=== PATIENT | female | born 1980 | race African-American/Black ===

== ENCOUNTER 2019-04-11 01:20 | Emergency (ER) | payer BC ==
[2019-04-11] MEDS ORDERED: Tetracaine HCl/PF 0.5% 4 ML Bottle EYEBOTH ONE (01:47)
[2019-04-11] MEDS ORDERED: Cetirizine 10 MG Tab PO ONE (01:47)
--- NOTE | 2019-04-11 01:56 | EDM.PDOC ---
ED HPI GENERAL MEDICAL PROBLEM - General Chief Complaint: ENT Problem Stated Complaint: CHEMICAL SPLASHED INTO EYES Time Seen by Provider: 04/11/19 01:50 Source of Information: Reports: Patient History Limitations: Reports: No Limitations - History of Present Illness INITIAL COMMENTS - FREE TEXT/NARRATIVE: Patient is a 38-year-old female with a past medical history of ulcerative colitis presenting with a chief complaint of grittiness sensation to both of her eyes. Patient states the symptoms developed after she dropped bleach. Patient states that she was holding a bottle of bleach when she felt like she had to use the bathroom so she dropped a bottle of bleach onto the floor. She quickly ran to the bathroom. Patient is not remember any chemical splashing into her eyes but noticed that as time went on throughout the evening her eyes became more irritated and more uncomfortable. She states her symptoms started in her left eye and then began in her right eye later. Patient reports associated nasal congestion states that she does have problems with allergies as well. She rinsed her eyes out and used clear eyes but did not have any improvement of her symptoms. Patient states she has some slight blurring of her right eye but otherwise just feels like her eyes are gritty. She has noted some associated redness of the both eyes. Pmhx: Per HPI Pshx: None Family Hx: noncontributory Smoking history? no Etoh use? none Drug use? none Comprehensive of review of systems performed and otherwise negative I have reviewed the triage vital signs Const: Well nourished, well developed, appears stated age Eyes: Bilateral conjunctival injection with mild swelling of both eyelids. On eyelid eversion no foreign body visualized. No discharge noted. Eyes are watery. Fluorescein exam is unremarkable. Extra ocular movements are intact. Pupils are equal and reactive to light. pH of both eyes is 7. HENT: NCAT, Neck supple without meningismus CV: RRR, Warm, well-perfused extremities RESP: CTAB, Unlabored respiratory effort GI: soft, non-tender, non-distended, no masses MSK: No gross deformities appreciated Skin: Warm, dry. No rashes Neuro: Alert, fur finisher II-XII grossly intact. Sensation and motor function of extremities grossly intact. Psych: Appropriate mood and affect Assessment and plan: Patient is 38-year-old female with eye itchiness and grittiness. Patient has no evidence of foreign body to the eyes. Patient's eyes and exam are more consistent with allergic conjunctivitis. I do believe that these symptoms and history are compatible with any significant bleach exposure to the eye. Patient will be given allergy medication and instructions to follow-up with ophthalmology clinic tomorrow. Patient given return precautions. All questions were addressed and answered. Patient agrees with plan. bilateral eyes Pain Score (Numeric/FACES): 5 - Related Data Allergies Allergy/AdvReac Type Severity Reaction Status Date / Time Influenza Virus Vaccines Allergy Itching Verified 04/11/19 01:35 morphine Allergy Other Verified 05/09/15 14:59 Home Meds: Home Meds Cholestyramine/Sucrose [Cholestyramine Packet] 4 gm PO DAILY 05/09/15 [History] Diphenoxylate HCl/Atropine [Diphenoxylate-Atrop 2.5-0.025] 1 each PO DAILY 05/08 [History] Esomeprazole Magnesium [Nexium 24Hr] 22.3 mg PO DAILY 05/09/15 [History] Ferrous Sulfate [Iron] 325 mg PO DAILY 05/09/15 [History] Megestrol Acetate 400 mg PO DAILY 05/09/15 [History] Ondansetron [Zofran ODT] 4 mg PO Q6H 05/09/15 [History] Vitamin B Complex [B Complex] 1 each PO DAILY 05/09/15 [History] metroNIDAZOLE [Metronidazole] 500 mg PO TID 05/09/15 [History] Past Medical History Gastrointestinal History: Reports: Inflammatory Bowel Disease, Other (See Below) Other Gastrointestinal History: ulcerative colitis Psychiatric History: Reports: Depression - Past Surgical History GI Surgical History: Reports: None Social & Family History - Family History Family Medical History: Noncontributory - Tobacco Use Smoking Status *Q: Never Smoker Second Hand Smoke Exposure: No - Caffeine Use Caffeine Use: Reports: None - Recreational Drug Use Recreational Drug Use: No ED ROS GENERAL - Review of Systems Review Of Systems: See Below ED EXAM GENERAL W FULL EYE - Physical Exam Exam: See Below Course - Vital Signs Last Recorded V/S: Last Vital Signs Temp 36.3 C 04/11/19 01:24 Pulse 92 04/11/19 01:24 Resp 17 04/11/19 01:24 BP 124/76 04/11/19 01:24 Pulse Ox 97 04/11/19 01:24 - Orders/Labs/Meds Meds: Medications Discontinued Medications Generic Name Dose Route Start Last Admin Trade Name Oswaldo PRN Reason Stop Dose Admin Cetirizine HCl 10 mg 04/11/19 01:47 04/11/19 01:57 Zyrtec PO 04/11/19 01:48 10 mg ONETIME ONE Administration Tetracaine HCl 1 ml 04/11/19 01:47 04/11/19 01:56 Tetracaine 0.5% Steri-Unit Felicity EYEBOTH 04/11/19 01:48 2 drop ASDIRECTED ONE Administration Departure - Departure Time of Disposition: 02:10 Disposition: Home, Self-Care 01 Clinical Impression: Allergic conjunctivitis - Discharge Information Referrals: PCP,None [Primary Care Provider] - Forms: ED Department Discharge Additional Instructions: The following information is given to patients seen in the emergency department who are being discharged to home. This information is to outline your options for follow-up care. We provide all patients seen in our emergency department with a follow-up referral. The need for follow-up, as well as the timing and circumstances, are variable depending upon the specifics of your emergency department visit. If you don't have a primary care physician on staff, we will provide you with a referral. We always advise you to contact your personal physician following an emergency department visit to inform them of the circumstance of the visit and for follow-up with them and/or the need for any referrals to a consulting specialist. The emergency department will also refer you to a specialist when appropriate. This referral assures that you have the opportunity for follow-up care with a specialist. All of these measure are taken in an effort to provide you with optimal care, which includes your follow-up. Under all circumstances we always encourage you to contact your private physician who remains a resource for coordinating your care. When calling for follow-up care, please make the office aware that this follow-up is from your recent emergency room visit. If for any reason you are refused follow-up, please contact the [facility] Emergency Department at and asked to speak to the emergency department charge nurse. Sepsis Event Note - Evaluation Sepsis Screening Result: No Definite Risk - Focused Exam Vital Signs: Vital Signs Temp Pulse Resp BP Pulse Ox 04/11/19 01:24 36.3 C 92 17 124/76 97 Date Exam was Performed: 04/11/19 Time Exam was Performed: 02:08
[2019-04-11 02:17] VITALS: BP 126/80; PULSE 85
== END 2019-04-11 02:15 | disposition home or self-care (01) ==
LOC: MW.ED 01:20
DX: H10.13 Acute atopic conjunctivitis, bilateral (principal); Z88.5 Allergy status to narcotic agent; Z88.8 Allergy status to other drugs, medicaments and biological substances; Z79.899 Other long term (current) drug therapy
CPT/HCPCS: 99283; A9270

== ENCOUNTER 2019-04-29 17:40 | Emergency (ER) | payer BC, MEDICAID ==
[2019-04-29] MEDS ORDERED: Sodium Chloride 0.9% 1,000 ML IV ONE (19:07)
[2019-04-29] MEDS ORDERED: Ondansetron 4 MG/2 ML SDV IVPUSH ONE (19:09)
--- NOTE | 2019-04-29 19:09 | EDM.PDOC ---
ED HPI GENERAL MEDICAL PROBLEM - General Chief Complaint: Fever Stated Complaint: EMS ARRIVAL Time Seen by Provider: 04/29/19 18:53 Source of Information: Reports: Patient History Limitations: Reports: No Limitations - History of Present Illness INITIAL COMMENTS - FREE TEXT/NARRATIVE: HISTORY AND PHYSICAL: History of present illness: She is a 38-year-old female who presents to the ED today via EMS for concern of fever, cough, headache, generalized body aches since this morning. Patient states she did take 3 doses of Tylenol and told today and did take 1 dose just before coming to the ED. Patient states she checked her temperature at home and it was 100.9 orally. Patient states her headache is her main complaint and that this is not her typical type of headache and is unusual for her. Patient states she does have a history of ulcerative colitis and is on immune suppressing agents. Patient denies any other health history. Patient denies chest pain, shortness of breath. Denies neck stiff ness, change in vision, syncope, or near syncope. Denies nausea, vomiting, abdominal pain, diarrhea, constipation, or dysuria. Has not noted any blood in urine or stool. Patient has been eating and drinking appropriately. Review of systems: As per history of present illness and below otherwise all systems reviewed and negative. Past medical history: As per history of present illness and as reviewed below otherwise noncontributory. Surgical history: As per history of present illness and as reviewed below otherwise noncontributory. Social history: See social history for further information Family history: As per history of present illness and as reviewed below otherwise noncontributory. Physical exam: General: Patient is alert, oriented, and in no acute distress. Patient laying on exam table and tired appearing. HEENT: Atraumatic, normocephalic, pupils equal and reactive bilaterally, negative for conjunctival pallor or scleral icterus, mucous membranes moist, TMs normal bilaterally, throat clear, neck supple, nontender, trachea midline. No drooling or trismus noted. No meningeal signs. No hot potato voice noted. Lungs: Clear to auscultation, breath sounds equal bilaterally, chest nontender. Heart: S1S2, regular rate and rhythm without overt murmur Abdomen: Soft, nondistended, nontender. Negative for masses or hepatosplenomegaly. Negative for costovertebral tenderness. Pelvis: Stable nontender. Genitourinary: Deferred. Rectal: Deferred. Skin: Intact, warm, dry. No lesions or rashes noted. Extremities: Atraumatic, negative for cords or calf pain. Neurovascular unremarkable.Negative Brudzinski/Kernig sign. Neuro: Awake, alert, oriented. Cranial nerves II through XII unremarkable. Cerebellum unremarkable. Motor and sensory unremarkable throughout. Exam nonfocal. Notes: Patient expresses improvement of symptoms today in the ED. Discussed importance for follow-up with primary care provider. Voices understanding and is agreeable to plan of care. Denies any further questions or concerns at this time. Diagnostics: Influenza, Strep, CBC, CMP, UA, EKG, CXR, Hcg, Head CT Therapeutics: NS, Zofran, Toradol, Reglan, Benadryl Prescription: None Impression: Flu like symptoms Headache, improved Plan: 1. You can alternate ibuprofen and Tylenol as directed for pain and discomfort. 2. Follow-up with your primary care provider as discussed. Return to the ED as needed and as discussed. Definitive disposition and diagnosis as appropriate pending reevaluation and review of above. SÁNCHEZ Pain Score (Numeric/FACES): 9 - Related Data Allergies Allergy/AdvReac Type Severity Reaction Status Date / Time Influenza Virus Vaccines Allergy Itching Verified 04/29/19 18:57 morphine Allergy Other Verified 04/29/19 18:57 Home Meds: Home Meds Cholestyramine/Sucrose [Cholestyramine Packet] 4 gm PO DAILY 05/09/15 [History] Diphenoxylate HCl/Atropine [Diphenoxylate-Atrop 2.5-0.025] 1 each PO DAILY 05/08 [History] Esomeprazole Magnesium [Nexium 24Hr] 22.3 mg PO DAILY 05/09/15 [History] Ferrous Sulfate [Iron] 325 mg PO DAILY 05/09/15 [History] Megestrol Acetate 400 mg PO DAILY 05/09/15 [History] Ondansetron [Zofran ODT] 4 mg PO Q6H 05/09/15 [History] Vitamin B Complex [B Complex] 1 each PO DAILY 05/09/15 [History] metroNIDAZOLE [Metronidazole] 500 mg PO TID 05/09/15 [History] Mesalamine [Apriso] 0.375 gm PO TID 04/29/19 [History] Past Medical History Gastrointestinal History: Reports: Inflammatory Bowel Disease, Other (See Below) Other Gastrointestinal History: ulcerative colitis Psychiatric History: Reports: Depression - Past Surgical History GI Surgical History: Reports: None Social & Family History - Family History Family Medical History: Noncontributory - Tobacco Use Smoking Status *Q: Never Smoker - Caffeine Use Caffeine Use: Reports: None - Recreational Drug Use Recreational Drug Use: No ED ROS GENERAL - Review of Systems Review Of Systems: Comprehensive ROS is negative, except as noted in HPI. ED EXAM, GENERAL - Physical Exam Exam: See Below (see dictation) Course - Vital Signs Last Recorded V/S: Last Vital Signs Temp 99.1 F 04/29/19 20:41 Pulse 91 04/29/19 20:41 Resp 12 04/29/19 20:41 BP 123/76 04/29/19 20:41 Pulse Ox 97 04/29/19 20:41 - Orders/Labs/Meds Orders: Active Orders 24 hr Category Date Time Status EKG Documentation Completion [RC] STAT Care 04/29/19 19:05 Active CULTURE STREP A CONFIRMATION [RM] Stat Lab 04/29/19 19:05 Results STREP SCRN A RAPID W CULT CONF [RM] Stat Lab 04/29/19 19:05 Results Isolation [COMM] Routine Oth 04/29/19 18:59 Active Labs: Laboratory Tests 04/29/19 04/29/19 04/29/19 Range/Units 19:12 19:12 19:12 WBC 7.41 (4.0-11.0) K/uL RBC 4.57 (4.30-5.90) M/uL Hgb 12.9 (12.0-16.0) g/dL Hct 39.9 (36.0-46.0) % MCV 87.3 (80.0-98.0) fL MCH 28.2 (27.0-32.0) pg MCHC 32.3 (31.0-37.0) g/dL RDW Std Deviation 45.3 (28.0-62.0) fl RDW Coeff of Harvey 14 (11.0-15.0) % Plt Count 217 (150-400) K/uL MPV 11.70 (7.40-12.00) fL Neut % (Auto) 80.2 H (48.0-80.0) % Lymph % (Auto) 7.0 L (16.0-40.0) % [place] % (Auto) 12.0 (0.0-15.0) % Eos % (Auto) 0.7 (0.0-7.0) % Baso % (Auto) 0.1 (0.0-1.5) % Neut # (Auto) 5.9 H (1.4-5.7) K/uL Lymph # (Auto) 0.5 L (0.6-2.4) K/uL [place] # (Auto) 0.9 H (0.0-0.8) K/uL Eos # (Auto) 0.1 (0.0-0.7) K/uL Baso # (Auto) 0.0 (0.0-0.1) K/uL Nucleated RBC % 0.0 /100WBC Nucleated RBCs # 0 K/uL Sodium 141 (136-145) mmol/L Potassium 3.7 (3.5-5.1) mmol/L Chloride 104 (98-107) mmol/L Carbon Dioxide 26.3 (21.0-32.0) mmol/L BUN 11 (7.0-18.0) mg/dL Creatinine 1.1 H (0.6-1.0) mg/dL Est Cr Clr Drug Dosing 68.09 mL/min Estimated GFR (MDRD) > 60.0 ml/min Glucose 97 (74-106) mg/dL Calcium 9.5 (8.5-10.1) mg/dL Total Bilirubin 0.6 (0.2-1.0) mg/dL AST 27 (15-37) IU/L ALT 29 (14-63) IU/L Alkaline Phosphatase 86 (46-116) U/L Total Protein 7.7 (6.4-8.2) g/dL Albumin 3.8 (3.4-5.0) g/dL Globulin 3.9 (2.6-4.0) g/dL Albumin/Globulin Ratio 1.0 (0.9-1.6) HCG, Qual NEGATIVE (NEG) Meds: Medications Discontinued Medications Generic Name Dose Route Start Last Admin Trade Name Freq PRN Reason Stop Dose Admin Diphenhydramine HCl 50 mg 04/29/19 20:46 04/29/19 20:52 Benadryl IVPUSH 04/29/19 20:47 50 mg ONETIME ONE Administration Sodium Chloride 1,000 mls @ 999 mls/hr 04/29/19 19:07 04/29/19 19:16 Normal Saline IV 04/29/19 20:07 999 mls/hr STAT ONE Administration Ketorolac Tromethamine 30 mg 04/29/19 19:58 04/29/19 20:06 Toradol IVPUSH 04/29/19 19:59 30 mg ONETIME ONE Administration Metoclopramide HCl 10 mg 04/29/19 20:46 04/29/19 20:52 Reglan IV 04/29/19 20:47 10 mg ONETIME ONE Administration Ondansetron HCl 4 mg 04/29/19 19:09 04/29/19 19:18 Zofran IVPUSH 04/29/19 19:10 4 mg ONETIME ONE Administration Departure - Departure Time of Disposition: 21:17 Disposition: Home, Self-Care 01 Clinical Impression: Flu-like symptoms Headache Qualifiers: Headache type: unspecified Headache chronicity pattern: acute headache Intractability: not intractable Qualified Code(s): R51 - Headache - Discharge Information Referrals: PCP,None [Primary Care Provider] - Forms: ED Department Discharge Additional Instructions: The following information is given to patients seen in the emergency department who are being discharged to home. This information is to outline your options for follow-up care. We provide all patients seen in our emergency department with a follow-up referral. The need for follow-up, as well as the timing and circumstances, are variable depending upon the specifics of your emergency department visit. If you don't have a primary care physician on staff, we will provide you with a referral. We always advise you to contact your personal physician following an emergency department visit to inform them of the circumstance of the visit and for follow-up with them and/or the need for any referrals to a consulting specialist. The emergency department will also refer you to a specialist when appropriate. This referral assures that you have the opportunity for follow-up care with a specialist. All of these measure are taken in an effort to provide you with optimal care, which includes your follow-up. Under all circumstances we always encourage you to contact your private physician who remains a resource for coordinating your care. When calling for follow-up care, please make the office aware that this follow-up is from your recent emergency room visit. If for any reason you are refused follow-up, please contact the [facility] Emergency Department at and asked to speak to the emergency department charge nurse. [facility] [address] [place] [address] [facility] [address] [place] [id number] 1. You can alternate ibuprofen and Tylenol as directed for pain and discomfort. 2. Follow-up with your primary care provider as discussed. Return to the ED as needed and as discussed. Sepsis Event Note - Evaluation Sepsis Screening Result: No Definite Risk - Focused Exam Vital Signs: Vital Signs Temp Pulse Resp BP Pulse Ox 04/29/19 20:41 99.1 F 91 12 123/76 97 04/29/19 18:54 99.7 F 107 H 16 125/81 97 Date Exam was Performed: 04/29/19 Time Exam was Performed: 21:16 - My Orders Last 24 Hours: My Active Orders 04/29/19 18:59 Isolation [COMM] Routine 04/29/19 19:05 EKG Documentation Completion [RC] STAT CULTURE STREP A CONFIRMATION [RM] Stat STREP SCRN A RAPID W CULT CONF [RM] Stat - Assessment/Plan Last 24 Hours: My Active Orders 04/29/19 18:59 Isolation [COMM] Routine 04/29/19 19:05 EKG Documentation Completion [RC] STAT CULTURE STREP A CONFIRMATION [RM] Stat STREP SCRN A RAPID W CULT CONF [RM] Stat
[2019-04-29 19:51] LABS: BLOOD UREA NITROGEN,BUN 11 mg/dL (7.0-18.0); CARBON DIOXIDE,CO2 26.3 mmol/L (21.0-32.0); CHLORIDE,CL 104 mmol/L (98-107); GLUCOSE RANDOM 97 mg/dL (74-106); POTASSIUM,K 3.7 mmol/L (3.5-5.1); SODIUM,NA 141 mmol/L (136-145)
[2019-04-29] MEDS ORDERED: Ketorolac 30 MG/ML SDV IVPUSH ONE (19:58)
--- NOTE | 2019-04-29 20:38 | CR ---
Chest: 2 views of the chest were obtained. Comparison: No prior chest imaging. Heart size and mediastinum are normal. Lungs are clear with no acute parenchymal change. Bony structures appear unremarkable. Impression: 1. Nothing acute is seen on 2 view chest x-ray. Diagnostic code #1 Study was dictated in MDT
[2019-04-29 20:42] VITALS: PULSE 91
[2019-04-29] MEDS ORDERED: diphenhydrAMINE 50 MG/ML SDV IVPUSH ONE (20:46)
[2019-04-29] MEDS ORDERED: Metoclopramide 10 MG/2 ML SDV IV ONE (20:46)
--- NOTE | 2019-04-29 21:14 | CT ---
Indication: Headache Technique: Nonenhanced axial CT imaging through the head. Sagittal and coronal reconstructions are provided. Comparison: None Findings: There is no intracranial hemorrhage, edema, or mass effect. There is normal attenuation of the brain parenchyma. The ventricles are normal in size. The basal cisterns are patent. The calvarium is intact. The visualized paranasal sinuses and mastoid air cells are aerated. Impression: No acute intracranial process. Please note that all CT scans at this facility use dose modulation, iterative reconstruction, and/or weight-based dosing when appropriate to reduce radiation dose to as low as reasonably achievable. Dictated by Rajwinder Coe MD @ Apr 29 2019 9:12PM Signed by Dr. Rajwinder Coe @ Apr 29 2019 9:12PM
[2019-04-30 04:12] VITALS: BP 118/72
== END 2019-04-29 21:26 | disposition home or self-care (01) ==
LOC: MW.ED 17:40
DX: R51 Headache (principal); R05 Cough; R50.9 Fever, unspecified; Z88.5 Allergy status to narcotic agent; Z88.7 Allergy status to serum and vaccine
CPT/HCPCS: 36415; 70450; 71046; 80053; 84703; 85025; 87081; 87804; 87880; 93005; 96361; 96374; 96375; 99285; J1200; J1885; J2405; J2765; J7030

== ENCOUNTER 2019-05-01 19:23 | Emergency (ER) | payer SELFPAY ==
[2019-05-01] MEDS ORDERED: Sodium Chloride 0.9% 10 ML Syringe FLUSH PRN (20:13)
[2019-05-01] MEDS ORDERED: Sodium Chloride 0.9% 1,000 ML IV ONE (20:13)
[2019-05-01] MEDS ORDERED: Sodium Chloride 0.9% 2.5 ML Syringe FLUSH PRN (20:13)
[2019-05-01] MEDS ORDERED: Metoclopramide 10 MG/2 ML SDV IVPUSH ONE (20:27)
[2019-05-01] MEDS ORDERED: diphenhydrAMINE 50 MG/ML SDV IVPUSH ONE (20:28)
--- NOTE | 2019-05-01 21:15 | EDM.PDOC ---
ED HPI GENERAL MEDICAL PROBLEM - General Chief Complaint: Respiratory Problem Stated Complaint: FLU SYSTEMS Time Seen by Provider: 05/01/19 21:00 - History of Present Illness INITIAL COMMENTS - FREE TEXT/NARRATIVE: 38-year-old female history of ulcerative colitis presenting to ER for cough chest pain body aches vomiting headache. Symptoms started on Monday prior to ED presentation. She came to the ER was worked up told everything was fine. She states that she is not feeling any better. still having the headache which is a 9 out of 10. The headache does not worsen with head movement. She denies photophobia. No diarrhea currently. No recent travel no sick contacts. No other associated symptoms. bodyaches Pain Score (Numeric/FACES): 9 - Related Data Allergies Allergy/AdvReac Type Severity Reaction Status Date / Time Influenza Virus Vaccines Allergy Itching Verified 05/01/19 19:56 morphine Allergy Other Verified 05/01/19 19:56 Home Meds: Home Meds Cholestyramine/Sucrose [Cholestyramine Packet] 4 gm PO DAILY 05/09/15 [History] Diphenoxylate HCl/Atropine [Diphenoxylate-Atrop 2.5-0.025] 1 each PO DAILY 05/08 [History] Esomeprazole Magnesium [Nexium 24Hr] 22.3 mg PO DAILY 05/09/15 [History] Ferrous Sulfate [Iron] 325 mg PO DAILY 05/09/15 [History] Megestrol Acetate 400 mg PO DAILY 05/09/15 [History] Ondansetron [Zofran ODT] 4 mg PO Q6H 05/09/15 [History] Vitamin B Complex [B Complex] 1 each PO DAILY 05/09/15 [History] metroNIDAZOLE [Metronidazole] 500 mg PO TID 05/09/15 [History] Mesalamine [Apriso] 0.375 gm PO TID 04/29/19 [History] Past Medical History Gastrointestinal History: Reports: Inflammatory Bowel Disease, Other (See Below) Other Gastrointestinal History: ulcerative colitis Psychiatric History: Reports: Depression - Past Surgical History GI Surgical History: Reports: None Social & Family History - Family History Family Medical History: Noncontributory - Tobacco Use Smoking Status *Q: Never Smoker - Caffeine Use Caffeine Use: Reports: None - Recreational Drug Use Recreational Drug Use: No ED ROS GENERAL - Review of Systems Review Of Systems: Comprehensive ROS is negative, except as noted in HPI. Constitutional: Reports: Malaise, Weakness HEENT: Reports: No Symptoms Respiratory: Reports: Cough Cardiovascular: Reports: No Symptoms Endocrine: Reports: No Symptoms GI/Abdominal: Reports: Diarrhea, Vomiting : Reports: No Symptoms Musculoskeletal: Reports: No Symptoms, Other (bodyaches ) Neurological: Reports: Headache Psychiatric: Reports: No Symptoms Hematologic/Lymphatic: Reports: No Symptoms Immunologic: Reports: No Symptoms ED EXAM, GENERAL - Physical Exam Exam: See Below Exam Limited By: No Limitations General Appearance: Alert Nose: Normal Inspection Throat/Mouth: No Airway Compromise, Other (erythema in the oropharynx ) Neck: Normal Inspection, Supple, Full Range of Motion Respiratory/Chest: No Respiratory Distress, Lungs Clear Cardiovascular: Normal Peripheral Pulses, No JVD GI/Abdominal: Soft, Non-Tender Back Exam: Normal Inspection Neurological: Alert, Oriented, CN II-XII Intact Psychiatric: Normal Affect Skin Exam: Warm Lymphatic: No Adenopathy EKG INTERPRETATION Rhythm: NSR [place]: Normal ST-T: Normal QT: Normal Course - Vital Signs Last Recorded V/S: Last Vital Signs Temp 97.9 F 05/01/19 19:54 Pulse 93 05/01/19 19:54 Resp 18 05/01/19 19:54 BP 127/85 05/01/19 19:54 Pulse Ox 99 05/01/19 19:54 - Orders/Labs/Meds Orders: Active Orders 24 hr Category Date Time Status CULTURE URINE [RM] Stat Lab 05/01/19 20:45 Received Sodium Chloride 0.9% [Saline Flush] Med 05/01/19 20:13 Active 10 ml FLUSH ASDIRECTED PRN Sodium Chloride 0.9% [Saline Flush] Med 05/01/19 20:13 Active 2.5 ml FLUSH ASDIRECTED PRN Isolation [COMM] Routine Oth 05/01/19 20:37 Active Saline Lock Insert [OM.PC] Stat Oth 05/01/19 20:13 Ordered Medication Orders Sodium Chloride (Saline Flush) 10 ml FLUSH ASDIRECTED PRN PRN Reason: Keep Vein Open Sodium Chloride (Saline Flush) 2.5 ml FLUSH ASDIRECTED PRN PRN Reason: Keep Vein Open Labs: Laboratory Tests 05/01/19 05/01/19 05/01/19 Range/Units 20:45 20:45 20:55 WBC 5.27 (4.0-11.0) K/uL RBC 4.73 (4.30-5.90) M/uL Hgb 13.5 (12.0-16.0) g/dL Hct 41.6 (36.0-46.0) % MCV 87.9 (80.0-98.0) fL MCH 28.5 (27.0-32.0) pg MCHC 32.5 (31.0-37.0) g/dL RDW Std Deviation 46.8 (28.0-62.0) fl RDW Coeff of [place] 14 (11.0-15.0) % Plt Count 194 (150-400) K/uL MPV 11.40 (7.40-12.00) fL Neut % (Auto) 55.2 (48.0-80.0) % Lymph % (Auto) 32.8 (16.0-40.0) % [place] % (Auto) 11.6 (0.0-15.0) % Eos % (Auto) 0.2 (0.0-7.0) % Baso % (Auto) 0.2 (0.0-1.5) % Neut # (Auto) 2.9 (1.4-5.7) K/uL Lymph # (Auto) 1.7 (0.6-2.4) K/uL [place] # (Auto) 0.6 (0.0-0.8) K/uL Eos # (Auto) 0.0 (0.0-0.7) K/uL Baso # (Auto) 0.0 (0.0-0.1) K/uL Nucleated RBC % 0.0 /100WBC Nucleated RBCs # 0 K/uL Sodium (136-145) mmol/L Potassium (3.5-5.1) mmol/L Chloride (98-107) mmol/L Carbon Dioxide (21.0-32.0) mmol/L BUN (7.0-18.0) mg/dL Creatinine (0.6-1.0) mg/dL Est Cr Clr Drug Dosing mL/min Estimated GFR (MDRD) ml/min Glucose (74-106) mg/dL Calcium (8.5-10.1) mg/dL Total Bilirubin (0.2-1.0) mg/dL AST (15-37) IU/L ALT (14-63) IU/L Alkaline Phosphatase (46-116) U/L Troponin I (0.000-0.056) ng/mL Total Protein (6.4-8.2) g/dL Albumin (3.4-5.0) g/dL Globulin (2.6-4.0) g/dL Albumin/Globulin Ratio (0.9-1.6) Lipase (73-393) U/L Urine Color YELLOW Urine Appearance SLT CLOUDY Urine pH 6.0 (5.0-8.0) Ur Specific [place] 1.025 (1.001-1.035) Urine Protein NEGATIVE (NEGATIVE) mg/dL Urine Glucose (UA) NEGATIVE (NEGATIVE) mg/dL Urine Ketones TRACE H (NEGATIVE) mg/dL Urine Occult Blood MODERATE H (NEGATIVE) Urine Nitrite NEGATIVE (NEGATIVE) Urine Bilirubin NEGATIVE (NEGATIVE) Urine Urobilinogen 0.2 (<2.0) EU/dL Ur Leukocyte Esterase MODERATE H (NEGATIVE) Urine RBC 0-3 (0-2/HPF) Urine WBC 17-21 (0-5/HPF) Ur Epithelial Cells FEW (NONE-FEW) Urine Bacteria 2+ H (NEGATIVE) Urine Mucus LIGHT (NONE-MOD) Urine HCG, Qual NEGATIVE (NEGATIVE) 05/01/19 Range/Units 20:55 WBC (4.0-11.0) K/uL RBC (4.30-5.90) M/uL Hgb (12.0-16.0) g/dL Hct (36.0-46.0) % MCV (80.0-98.0) fL MCH (27.0-32.0) pg MCHC (31.0-37.0) g/dL RDW Std Deviation (28.0-62.0) fl RDW Coeff of [place] (11.0-15.0) % Plt Count (150-400) K/uL MPV (7.40-12.00) fL Neut % (Auto) (48.0-80.0) % Lymph % (Auto) (16.0-40.0) % [place] % (Auto) (0.0-15.0) % Eos % (Auto) (0.0-7.0) % Baso % (Auto) (0.0-1.5) % Neut # (Auto) (1.4-5.7) K/uL Lymph # (Auto) (0.6-2.4) K/uL [place] # (Auto) (0.0-0.8) K/uL Eos # (Auto) (0.0-0.7) K/uL Baso # (Auto) (0.0-0.1) K/uL Nucleated RBC % /100WBC Nucleated RBCs # K/uL Sodium 144 (136-145) mmol/L Potassium 3.2 L (3.5-5.1) mmol/L Chloride 106 (98-107) mmol/L Carbon Dioxide 27.7 (21.0-32.0) mmol/L BUN 15 (7.0-18.0) mg/dL Creatinine 1.3 H (0.6-1.0) mg/dL Est Cr Clr Drug Dosing 57.62 mL/min Estimated GFR (MDRD) 55.9 ml/min Glucose 95 (74-106) mg/dL Calcium 9.5 (8.5-10.1) mg/dL Total Bilirubin 0.6 (0.2-1.0) mg/dL AST 36 (15-37) IU/L ALT 33 (14-63) IU/L Alkaline Phosphatase 70 (46-116) U/L Troponin I 0.069 H* (0.000-0.056) ng/mL Total Protein 8.0 (6.4-8.2) g/dL Albumin 3.8 (3.4-5.0) g/dL Globulin 4.2 H (2.6-4.0) g/dL Albumin/Globulin Ratio 0.9 (0.9-1.6) Lipase 193 (73-393) U/L Urine Color Urine Appearance Urine pH (5.0-8.0) Ur Specific [place] (1.001-1.035) Urine Protein (NEGATIVE) mg/dL Urine Glucose (UA) (NEGATIVE) mg/dL Urine Ketones (NEGATIVE) mg/dL Urine Occult Blood (NEGATIVE) Urine Nitrite (NEGATIVE) Urine Bilirubin (NEGATIVE) Urine Urobilinogen (<2.0) EU/dL Ur Leukocyte Esterase (NEGATIVE) Urine RBC (0-2/HPF) Urine WBC (0-5/HPF) Ur Epithelial Cells (NONE-FEW) Urine Bacteria (NEGATIVE) Urine Mucus (NONE-MOD) Urine HCG, Qual (NEGATIVE) Meds: Medications Generic Name Dose Route Start Last Admin Trade Name Oswaldo PRN Reason Stop Dose Admin Sodium Chloride 10 ml 05/01/19 20:13 Saline Flush FLUSH ASDIRECTED PRN Keep Vein Open Sodium Chloride 2.5 ml 05/01/19 20:13 Saline Flush FLUSH ASDIRECTED PRN Keep Vein Open Discontinued Medications Generic Name Dose Route Start Last Admin Trade Name Oswaldo PRN Reason Stop Dose Admin Aspirin 81 mg 05/01/19 21:45 Aspirin PO 05/01/19 21:46 ONETIME ONE Aspirin 162 mg 05/01/19 21:45 Halfprin PO 05/01/19 21:46 ONETIME ONE Aspirin 162 mg 05/01/19 22:25 05/01/19 22:30 Aspirin PO 05/01/19 22:26 162 mg ONETIME ONE Administration Diphenhydramine HCl 25 mg 05/01/19 20:28 05/01/19 21:04 Benadryl IVPUSH 05/01/19 20:29 25 mg ONETIME ONE Administration Sodium Chloride 1,000 mls @ 999 mls/hr 05/01/19 20:13 05/01/19 21:05 Normal Saline IV 05/01/19 21:13 999 mls/hr BOLUS ONE Administration Metoclopramide HCl 10 mg 05/01/19 20:27 05/01/19 21:04 Reglan IVPUSH 05/01/19 20:28 10 mg ONETIME ONE Administration - Re-Assessments/Exams Free Text/Narrative Re-Assessment/Exam: 05/01/19 22:36 Patient felt improved. Her symptoms were viral in etiology, she reported intermittent chest pain with coughing. Her EKG was nonspecific unchanged from prior. Flu Came back positive. troponin also borderline elevated. Will add on CPK. Given aspirin. Ordered Tamiflu. Patient discussed with Dr Crawley our hospitalist, recommended further work up at [place]. Defer included testing as per recommendations from [place] dept of health 05/01/19 22:[address] Allen at [facility] will transfer. Patient agrees with the plan chest pain-free right now. Departure - Departure Time of Disposition: 22:39 Disposition: DC/Tfer to [facility] Clinical Impression: Influenza - Discharge Information Referrals: PCP,None [Primary Care Provider] - Forms: ED Department Discharge Sepsis Event Note - Evaluation Sepsis Screening Result: No Definite Risk - Focused Exam Vital Signs: Vital Signs Temp Pulse Resp BP Pulse Ox 05/01/19 19:54 97.9 F 93 18 127/85 99 Date Exam was Performed: 05/01/19 Time Exam was Performed: 22:36 - My Orders Last 24 Hours: My Active Orders 05/01/19 20:13 Sodium Chloride 0.9% [Saline Flush] 10 ml FLUSH ASDIRECTED PRN Sodium Chloride 0.9% [Saline Flush] 2.5 ml FLUSH ASDIRECTED PRN Saline Lock Insert [OM.PC] Stat 05/01/19 20:37 Isolation [COMM] Routine 05/01/19 20:45 CULTURE URINE [RM] Stat - Assessment/Plan Last 24 Hours: My Active Orders 05/01/19 20:13 Sodium Chloride 0.9% [Saline Flush] 10 ml FLUSH ASDIRECTED PRN Sodium Chloride 0.9% [Saline Flush] 2.5 ml FLUSH ASDIRECTED PRN Saline Lock Insert [OM.PC] Stat 05/01/19 20:37 Isolation [COMM] Routine 05/01/19 20:45 CULTURE URINE [RM] Stat
[2019-05-01 21:40] LABS: CARBON DIOXIDE,CO2 27.7 mmol/L (21.0-32.0); POTASSIUM,K 3.2 mmol/L (3.5-5.1)
[2019-05-01] MEDS ORDERED: Aspirin 81 MG Tab.EC PO ONE (21:45)
[2019-05-01] MEDS ORDERED: Aspirin 81 MG Tab.Chew PO ONE ×2 (21:45→22:25)
--- NOTE | 2019-05-01 22:22 | CR ---
INDICATION: PT w/cough. TECHNIQUE: Chest 1 view. COMPARISON: 04/29/19 FINDINGS: Cardiovascular and mediastinum: Heart size and vasculature are normal in caliber and appearance. Mediastinum is within normal limits. Lungs and pleural space: Lungs are clear. No sign of infiltrate or mass. No sign of pleural effusion. No pneumothorax. Bones and soft tissues: No significant findings. IMPRESSION: Unremarkable chest. Dictated by: Chuck Cuevas MD @ 05/01/2019 22:20:49 (Electronically Signed)
[2019-05-01] MEDS ORDERED: Oseltamivir 75 MG Cap PO ONE (22:42)
[2019-05-01 22:49] VITALS: BP 111/65; PULSE 69
== END 2019-05-02 00:10 ==
LOC: MW.ED 19:23
DX: J11.1 Influenza due to unidentified influenza virus with other respiratory manifestations (principal); K51.90 Ulcerative colitis, unspecified, without complications; Z88.7 Allergy status to serum and vaccine; Z88.5 Allergy status to narcotic agent; Z79.899 Other long term (current) drug therapy
CPT/HCPCS: 36415; 71045; 80053; 81001; 81025; 83690; 84484; 85025; 87086; 87804; 93005; 96361; 96374; 96375; 99285; A9270; J1200; J2765; J7030; 99283

== ENCOUNTER 2019-11-19 15:29 | Emergency (ER) | payer OTHER, MEDICARE ==
[2019-11-19 15:43] VITALS: BP 127/79; PULSE 115
[2019-11-19] MEDS ORDERED: Ibuprofen 800 MG Tab PO ONE (16:07)
[2019-11-19] MEDS ORDERED: Cyclobenzaprine 10 MG Tab PO ONE (16:08)
--- NOTE | 2019-11-19 16:11 | EDM.PDOC ---
ED HPI GENERAL MEDICAL PROBLEM - General Chief Complaint: Flank Pain Stated Complaint: PAIN ON BACK AND LEFT OF TORSO Time Seen by Provider: 11/19/19 15:35 - History of Present Illness INITIAL COMMENTS - FREE TEXT/NARRATIVE: History of present illness: [] Patient presents with left-sided back pain that began 2 days ago she denies any fever chills no dysuria no trouble urinating she denies any trauma no fever she has not had any heavy lifting or injuries that she can recall. Patient states the pain is sharp is worse with movement and it radiates into her left buttocks there is been no weakness in the lower extremities no numbness she has not had this type of pain before Review of systems: As per history of present illness and below otherwise all systems reviewed and negative. Past medical history: As per history of present illness and as reviewed below otherwise noncontributory. Surgical history: As per history of present illness and as reviewed below otherwise noncontributory. Social history: No reported history of drug or alcohol abuse. Family history: As per history of present illness and as reviewed below otherwise noncontributory. Physical exam: HEENT: Atraumatic, normocephalic, pupils reactive, negative for conjunctival pallor or scleral icterus, mucous membranes moist, throat clear, neck supple, nontender, trachea midline. Lungs: Clear to auscultation, breath sounds equal bilaterally, chest nontender. Heart: S1S2, regular, negative for clicks, rubs, or JVD. Abdomen: Soft, nondistended, nontender. Negative for masses or hepatosplenomegaly. Negative for costovertebral tenderness. Pelvis: Stable nontender. Genitourinary: Deferred. Rectal: Deferred. Extremities: Atraumatic, negative for cords or calf pain. Neurovascular unremarkable. Neuro: Awake, alert, oriented. Cranial nerves II through XII unremarkable. Cerebellum unremarkable. Motor and sensory unremarkable throughout. Exam nonfocal. There is no saddle anesthesia great toe strength 5 out of 5 bilaterally Back: There is no midline tenderness at any level of the spinal column she has tenderness and spasm in the lumbar paraspinal musculature at the level of L4 there is no rash at this level Diagnostics: [] Therapeutics: [] Impression: Low back pain [] Plan: I will get a urinalysis to make sure this does not represent a pyelonephritis however I feel like this is more musculoskeletal we will treat her with Motrin and Flexeril in the ED and reassess. [] Definitive disposition and diagnosis as appropriate pending reevaluation and review of above. L flank Pain Score (Numeric/FACES): 9 - Related Data Allergies Allergy/AdvReac Type Severity Reaction Status Date / Time Influenza Virus Vaccines Allergy Itching Verified 11/19/19 15:38 morphine Allergy Other Verified 11/19/19 15:38 Home Meds: Home Meds Cholestyramine/Sucrose [Cholestyramine Packet] 4 gm PO DAILY 05/09/15 [History] Diphenoxylate HCl/Atropine [Diphenoxylate-Atrop 2.5-0.025] 1 each PO DAILY 05/09/15 [History] Esomeprazole Magnesium [Nexium 24Hr] 22.3 mg PO DAILY 05/09/15 [History] Ferrous Sulfate [Iron] 325 mg PO DAILY 05/09/15 [History] Megestrol Acetate 400 mg PO DAILY 05/09/15 [History] Ondansetron [Zofran ODT] 4 mg PO Q6H 05/09/15 [History] Vitamin B Complex [B Complex] 1 each PO DAILY 05/09/15 [History] metroNIDAZOLE [Metronidazole] 500 mg PO TID 05/09/15 [History] Mesalamine [Apriso] 0.375 gm PO TID 04/29/19 [History] Cyclobenzaprine [Flexeril] 10 mg PO TID #30 tab 11/19/19 [Rx] Gabapentin [Neurontin] 300 mg PO TID #30 cap 11/19/19 [Rx] Sulfamethoxazole/Trimethoprim [Bactrim Ds Tablet] 1 each PO BID #20 tablet 11/19/19 [Rx] predniSONE 60 mg PO WITHBREAKFAST 5 Days #15 tab 11/19/19 [Rx] Past Medical History Gastrointestinal History: Reports: Inflammatory Bowel Disease, Other (See Below) Other Gastrointestinal History: ulcerative colitis Psychiatric History: Reports: Depression - Past Surgical History GI Surgical History: Reports: None Social & Family History - Family History Family Medical History: Noncontributory - Caffeine Use Caffeine Use: Reports: Tea - Recreational Drug Use Recreational Drug Use: No ED ROS GENERAL - Review of Systems Review Of Systems: See Below ED EXAM, GENERAL - Physical Exam Exam: See Below Course - Vital Signs Text/Narrative:: Urine results reveal some occult blood positive for bacteria and white blood cells however leukoesterase and nitrates are negative but there is some minimal contamination. With the occult blood in the elevated white blood cells I am going to treat her empirically for the urinary tract infection although I feel that most of her pain is musculoskeletal. She was started on some Bactrim since the pain she has radiates into her buttocks and is burning in nature going to treat her with steroid Tylenol Flexeril and gabapentin she is to follow-up with her primary care doctor. There is no evidence of saddle anesthesia or weakness I do not believe this represents cauda equina syndrome epidural abscess or a spinal cord lesion. Last Recorded V/S: Last Vital Signs Temp 35.8 C L 11/19/19 15:39 Pulse 115 H 11/19/19 15:39 Resp 20 11/19/19 15:39 BP 127/79 11/19/19 15:39 Pulse Ox 97 11/19/19 15:39 - Orders/Labs/Meds Labs: Laboratory Tests 11/19/19 11/19/19 Range/Units 16:00 16:00 Urine Color YELLOW Urine Appearance HAZY Urine pH 5.0 (5.0-8.0) Ur Specific [place] >= 1.030 (1.001-1.035) Urine Protein NEGATIVE (NEGATIVE) mg/dL Urine Glucose (UA) NEGATIVE (NEGATIVE) mg/dL Urine Ketones TRACE H (NEGATIVE) mg/dL Urine Occult Blood MODERATE H (NEGATIVE) Urine Nitrite NEGATIVE (NEGATIVE) Urine Bilirubin NEGATIVE (NEGATIVE) Urine Urobilinogen 0.2 (<2.0) EU/dL Ur Leukocyte Esterase NEGATIVE (NEGATIVE) Urine RBC 5-10 (0-2/HPF) Urine WBC 3-6 (0-5/HPF) Ur Epithelial Cells FEW (NONE-FEW) Urine Bacteria 2+ H (NEGATIVE) Urine HCG, Qual NEGATIVE (NEGATIVE) Meds: Medications Discontinued Medications Generic Name Dose Route Start Last Admin Trade Name Freq PRN Reason Stop Dose Admin Cyclobenzaprine HCl 10 mg 11/19/19 16:08 11/19/19 16:20 Flexeril PO 11/19/19 16:09 10 mg ONETIME ONE Administration Ibuprofen 800 mg 11/19/19 16:07 11/19/19 16:20 Motrin PO 11/19/19 16:08 800 mg ONETIME ONE Administration Departure - Departure Time of Disposition: 16:52 Disposition: Home, Self-Care 01 Condition: Good Clinical Impression: Lumbar radiculopathy, Urinary tract infection - Discharge Information *PRESCRIPTION DRUG MONITORING PROGRAM REVIEWED*: Not Applicable *COPY OF PRESCRIPTION DRUG MONITORING REPORT IN PATIENT SHANITA: Not Applicable Instructions: Flank Pain, Adult, [id number], Urinary Tract Infection, Adult, [id number] Referrals: PCP,None [Primary Care Provider] - Forms: ED Department Discharge Additional Instructions: The following information is given to patients seen in the emergency department who are being discharged to home. This information is to outline your options for follow-up care. We provide all patients seen in our emergency department with a follow-up referral. The need for follow-up, as well as the timing and circumstances, are variable depending upon the specifics of your emergency department visit. If you don't have a primary care physician on staff, we will provide you with a referral. We always advise you to contact your personal physician following an emergency department visit to inform them of the circumstance of the visit and for follow-up with them and/or the need for any referrals to a consulting specialist. The emergency department will also refer you to a specialist when appropriate. This referral assures that you have the opportunity for follow-up care with a specialist. All of these measure are taken in an effort to provide you with optimal care, which includes your follow-up. Under all circumstances we always encourage you to contact your private physician who remains a resource for coordinating your care. When calling for follow-up care, please make the office aware that this follow-up is from your recent emergency room visit. If for any reason you are refused follow-up, please contact the Emergency Department at and asked to speak to the emergency department charge nurse. [facility] [address] [place] [id number] [facility] [address] [place] [id number] Sepsis Event Note (ED) - Evaluation Sepsis Screening Result: No Definite Risk - Focused Exam Vital Signs: Vital Signs Temp Pulse Resp BP Pulse Ox 11/19/19 15:39 35.8 C L 115 H 20 127/79 97
== END 2019-11-19 17:15 | disposition home or self-care (01) ==
LOC: MW.ED 15:29
DX: M54.16 Radiculopathy, lumbar region (principal); N39.0 Urinary tract infection, site not specified; Z88.7 Allergy status to serum and vaccine; Z88.5 Allergy status to narcotic agent
CPT/HCPCS: 81001; 81025; 99283; A9270

== ENCOUNTER 2020-04-03 09:44 | Emergency (ER) | payer OTHER, MEDICARE ==
--- NOTE | 2020-04-03 09:53 | EDM.PDOC ---
ED HPI GENERAL MEDICAL PROBLEM - General Stated Complaint: PAIN UPPER LFT CHEST Time Seen by Provider: 04/03/20 09:47 Source of Information: Reports: Patient History Limitations: Reports: No Limitations - History of Present Illness INITIAL COMMENTS - FREE TEXT/NARRATIVE: 39-year-old female presents for 3 weeks of left upper breast pain, numbness, tingling sensation. She notes that the pain seems to also radiate to the right breast at times. Is worse with palpation and with certain movements of her upper extremities. She notes that when the pain is very bad she does get mildly short of breath. She denies any fevers, discharge from the breasts, unexplained weight loss. She notes that she saw her SEISMOGRAPH OPERATOR HELPER for this issue but unfortunately got distracted with routine health maintenance, Pap smear, etc. and her SEISMOGRAPH OPERATOR HELPER did not get around to actually examining the breast or addressing the issue. No family history of breast cancer. Left Breast Pain Score (Numeric/FACES): 6 - Related Data Allergies Allergy/AdvReac Type Severity Reaction Status Date / Time Influenza Virus Vaccines Allergy Itching Verified 04/03/20 09:54 morphine Allergy Other Verified 04/03/20 09:54 Sulfa (Sulfonamide Allergy Hives Verified 04/03/20 09:54 Antibiotics) Home Meds: Home Meds Cholestyramine/Sucrose [Cholestyramine Packet] 4 gm PO DAILY 05/09/15 [History] Diphenoxylate HCl/Atropine [Diphenoxylate-Atrop 2.5-0.025] 1 each PO DAILY 05/09/15 [History] Esomeprazole Magnesium [Nexium 24Hr] 22.3 mg PO DAILY 05/09/15 [History] Ferrous Sulfate [Iron] 325 mg PO DAILY 05/09/15 [History] Megestrol Acetate 400 mg PO DAILY 05/09/15 [History] Ondansetron [Zofran ODT] 4 mg PO Q6H 05/09/15 [History] Vitamin B Complex [B Complex] 1 each PO DAILY 05/09/15 [History] metroNIDAZOLE [Metronidazole] 500 mg PO TID 05/09/15 [History] Mesalamine [Apriso] 0.375 gm PO TID 04/29/19 [History] Cyclobenzaprine [Flexeril] 10 mg PO TID #30 tab 11/19/19 [Rx] Gabapentin [Neurontin] 300 mg PO TID #30 cap 11/19/19 [Rx] Sulfamethoxazole/Trimethoprim [Bactrim Ds Tablet] 1 each PO BID #20 tablet 11/19/19 [Rx] predniSONE 60 mg PO WITHBREAKFAST 5 Days #15 tab 11/19/19 [Rx] Past Medical History Gastrointestinal History: Reports: Inflammatory Bowel Disease, Other (See Below) Other Gastrointestinal History: ulcerative colitis Psychiatric History: Reports: Depression - Past Surgical History GI Surgical History: Reports: None Social & Family History - Family History Family Medical History: No Pertinent Family History - Caffeine Use Caffeine Use: Reports: Tea ED ROS GENERAL - Review of Systems Review Of Systems: Comprehensive ROS is negative, except as noted in HPI. ED EXAM, GENERAL - Physical Exam Exam: See Below Exam Limited By: No Limitations General Appearance: Alert, WD/WN, No Apparent Distress Throat/Mouth: Normal Voice, No Airway Compromise Respiratory/Chest: No Respiratory Distress, No Accessory Muscle Use Cardiovascular: Normal Peripheral Pulses, Regular Rate, Rhythm Extremities: Normal Inspection Skin Exam: Other (No palpable masses, no overlying skin changes of the left breast, no discharge from nipple, no palpable axillary lymph nodes) #1 Interpretation EKG Date: 04/03/20 Time: 10:05 Rhythm: NSR Rate (Beats/Min): 74 Speer: Normal P-Wave: Present QRS: Normal ST-T: Normal QT: Normal AK/PQ Interval: 148 Comparison: NA - No Prior EKG EKG Interpretation Comments: no ischemic-changes Course - Vital Signs Last Recorded V/S: Last Vital Signs Temp 96.4 F L 04/03/20 09:55 Pulse 89 04/03/20 09:55 Resp 16 04/03/20 09:55 BP 146/86 H 04/03/20 09:55 Pulse Ox 100 04/03/20 09:55 - Orders/Labs/Meds Orders: Active Orders 24 hr Category Date Time Status EKG Documentation Completion [RC] STAT Care 04/03/20 10:05 Active Chest 1V Frontal [CR] Stat Exams 04/03/20 10:05 Taken Labs: Laboratory Tests 04/03/20 Range/Units 10:05 Urine HCG, Qual NEGATIVE (NEGATIVE) - Re-Assessments/Exams Free Text/Narrative Re-Assessment/Exam: 04/03/20 10:10 Will get EKG and chest x-ray to rule out emergent pathology. Spoke with patient at length about the importance of PMD follow-up as patient might benefit from advanced imaging of the breast to rule out cancer or other serious pathology. Low suspicion of infection or other emergent causes of left breast pain. 04/03/20 10:44 Urine is negative. EKG is normal. Chest x-ray is unremarkable. Will discharge patient with follow-up PMD for further evaluation and possible a dvanced imaging. Departure - Departure Time of Disposition: 10:44 Disposition: Home, Self-Care 01 Condition: Good Clinical Impression: Breast pain - Discharge Information Instructions: Breast Tenderness Referrals: Sonia Johnson DO [Primary Care Provider] - Additional Instructions: Your emergency department work-up is negative for signs of acute pathology. Your EKG which is an electrical test of the heart appears normal. Your chest x- ray also appears normal. Your urine test was negative. There is no evidence of infection in the breast on my exam. You will need to follow-up with a primary care physician and discuss your breast pain. They may want to do advanced imaging such as a mammogram or ultrasound of the breast. Unfortunately these tests are not available through the emergency department. The following information is given to patients seen in the emergency department who are being discharged to home. This information is to outline your options for follow-up care. We provide all patients seen in our emergency department with a follow-up referral. The need for follow-up, as well as the timing and circumstances, are variable depending upon the specifics of your emergency department visit. If you don't have a primary care physician on staff, we will provide you with a referral. We always advise you to contact your personal physician following an emergency department visit to inform them of the circumstance of the visit and for follow-up with them and/or the need for any referrals to a consulting specialist. The emergency department will also refer you to a specialist when appropriate. This referral assures that you have the opportunity for follow-up care with a specialist. All of these measure are taken in an effort to provide you with optimal care, which includes your follow-up. Under all circumstances we always encourage you to contact your private river eng who remains a resource for coordinating your care. When calling for follow-up care, please make the office aware that this follow-up is from your recent emergency room visit. If for any reason you are refused follow-up, please contact the [facility] Emergency Department at and asked to speak to the emergency department charge nurse. Please follow up with your primary care physician. If you do not have a primary care physician, see below: [facility] [address] [place] [id number] [facility] [address] [place] [id number] [facility] [address] [place] [id number] Sepsis Event Note (ED) - Focused Exam Vital Signs: Vital Signs Temp Pulse Resp BP Pulse Ox 04/03/20 09:55 96.4 F L 89 16 146/86 H 100 - My Orders Last 24 Hours: My Active Orders 04/03/20 10:05 EKG Documentation Completion [RC] STAT Chest 1V Frontal [CR] Stat - Assessment/Plan Last 24 Hours: My Active Orders 04/03/20 10:05 EKG Documentation Completion [RC] STAT Chest 1V Frontal [CR] Stat
[2020-04-03 10:03] VITALS: BP 146/86
--- NOTE | 2020-04-03 10:54 | CR ---
INDICATION: Left chest/breast pain. TECHNIQUE: Chest 1 views COMPARISON: May 01, 2019. FINDINGS: Cardiovascular and mediastinum: Heart size and vasculature are normal in caliber and appearance. Lungs and pleural spaces: Lungs are clear. No sign of infiltrate or mass. No sign of pleural effusion. No pneumothorax. Bones and soft tissues: No significant findings. IMPRESSION: No acute findings and no significant changes from the prior exam. Dictated by Long Shah MD @ Apr 03 2020 10:52AM Signed by Dr. Long Shah @ Apr 03 2020 10:53AM
[2020-04-03 11:06] VITALS: PULSE 97
== END 2020-04-03 11:05 | disposition home or self-care (01) ==
LOC: MW.ED 09:44
DX: N64.4 Mastodynia (principal); Z88.7 Allergy status to serum and vaccine; Z88.2 Allergy status to sulfonamides; Z88.5 Allergy status to narcotic agent; Z79.899 Other long term (current) drug therapy
CPT/HCPCS: 71045; 71045-26; 81025; 93005; 99284-25